=== PATIENT | male | born 2000 | race African-American/Black ===

== ENCOUNTER 2022-07-24 07:14 | Emergency (ER) | payer SELFPAY ==
[2022-07-24] MEDS ORDERED: Ibuprofen 600 MG Tab PO ONE (07:44)
[2022-07-24] MEDS: Ketorolac 30 MG/ML SDV IM STA ×2 (07:45→07:56)
[2022-07-24] MEDS ORDERED: Ketorolac 30 MG/ML SDV IM ONE (07:55)
[2022-07-24 08:09] LABS: CORONAVIRUS COVID-19 NAA NEGATIVE (NEGATIVE); INFLUENZA A NAA POSITIVE (NEGATIVE); INFLUENZA B NAA NEGATIVE (NEGATIVE)
== END 2022-07-24 08:36 | disposition home or self-care (01) ==
LOC: MW.ED 07:14
DX: J10.1 Influenza due to other identified influenza virus with other respiratory manifestations (principal); Z20.822 Contact with and (suspected) exposure to COVID-19
CPT/HCPCS: 0240U; 96372; 99283; J1885

== ENCOUNTER 2022-08-23 09:16 | Emergency (ER) | payer SELFPAY ==
[2022-08-23 11:18] LABS: C. TRACHOMATIS BY PCR NOT DETECTED; N. GONORRHOEAE BY PCR NOT DETECTED
== END 2022-08-23 11:46 | disposition home or self-care (01) ==
LOC: MW.ED 09:16
DX: R30.0 Dysuria (principal)
CPT/HCPCS: 81001; 87086; 87491; 87591; 99283